=== PATIENT | male | born 1985 | race Caucasian/White ===

== ENCOUNTER 2025-09-22 10:12 | Emergency (ER) | payer BC, SELFPAY ==
[2025-09-22 10:31] VITALS: BP 137/74; PULSE 81; RESP 16; TEMP 37; O2SAT 99; BMI 29.7
--- OUTSIDE RECORDS SUMMARY | 2025-09-22 10:55 | XMS_ITS | Clinical Summary ---
Author Organization [facility] Address [address] [place] [address] Care Team Providers Care Pipeline Operator Name Role Phone Unavailable Primary Care Provider Unavailabl e Source Comments PLEASE NOTE, if this patient is a minor, it may be UNLAWFUL to discuss sensitive information that is contained in these records (such as FAMILY PLANNING, MENTAL HEALTH or SUBSTANCE ABUSE) with the minor patient's parent or other person without the patient's specific authorization.[facility] Immunizations Immunization Administration Dates Next Due Moderna COVID-19 Vaccine, re d cap blue label, 12+ Primary Series 04/09/2021,03/12/2021 Social History Tobacco Use Types Packs/Day Years Used Date Smoking Tobacco: Never Assessed Social Connections Answer Date Recorded Social Connections and Isolation 0 03/12/2021 Financial Resource Strain Answer Date R ecorded Financial Resource Strain 0 2020 Stress Answer Date Recorded Stress 0 03/12/2021 Physical Activity Answer Date Recorded Physical Activity 0 03/12/2021 Food Insecurity Answer Date Recorded Food 0 03/12/2021 Transportation Needs Answer Date Record ed Transportation 0 03/12/2021 Housing Stability Answer Date Recorded Housing 0 03/12/2021 Safety and Environment Answer Date [place] rded Safety 0 03/12/2021 Utilities Answer Date Recorded Utilities 0 03/12/2021 Employment Answer Date Recorded Employment 0 03/12/2021 Sex and Gender Information Value Date Recorded Sex Assigned at Not on file Legal Sex Male 6:42 AM PDT Gender Identity Not on file Sexual Orientation Not on file Plan of Treatment Health Maintenance Due Date Last Done Comments Anxiety Screening 1984 Diabetes Screening 1984 Hepatitis C Screening 1984 Lipid Screening 1984 Tobacco Screening 1984 HIV Screening 1999 Hypertension Screening (#1) 2002 Imm-DTaP/Tdap/Td (1 - Tdap) 2003 Imm-Hepatitis B (1 of 3 - 19 + 3-dose series) 2003 Imm-HPV (1 - 3-dose SCDM series) 2011 Alcohol and Drug Screen 11/15/2024 Depression Annual Screen 11/15/2024 [id number] ( season) 2025 021, 03/12/2021 Imm-Influenza (#1) 2025 Insurance [employer]/[facility]
--- OUTSIDE RECORDS SUMMARY | 2025-09-22 10:55 | XMS_ITS | Clinical Summary ---
Author Organization [facility] Address [address] [place] [address] Care Team Providers Care Sling Operator Name Role Phone Unavailable Primary Care Provider Unavailabl e Social History Tobacco Use Types Packs/Day Years Used Date Smoking Tobacco: Never Assessed Sex and Gender Information Value Date Recorded Sex Assigned at Not on file Legal Sex Male 9:50 AM EDT Gender Identity Not on file Sexual Orientation Not on file Plan of Treatment Health Maintenance Due Date Last Done Comments Hepatitis C Screening 1984 DTaP/Tdap/Td (1 - Tdap) 2002 Hep B (1 of 3 - 19+ 3-dose series) 2003 COVID-19 Vaccine ( - 2024-2 6 season) 2025 Influenza (#1) 2025 Zoster (Shingrix) (1 of 2) 2034 HPV Vaccine (No Doses Required) Completed Hep A Aged Out No longer eligi ble based on patient's age to complete this topic Hib Aged Out No longer eligi ble based on patient's age to complete this topic Meningococcal ACWY Aged Out No longer eligible based on patient's age to complete this topic Pneumococcal Aged Out No longer eligi ble based on patient's age to complete this topic
--- OUTSIDE RECORDS SUMMARY | 2025-09-22 10:55 | XMS_ITS | Data Portability ---
Author Organization [place] - [facility], Allergy Address [address] [place] [id number] Care Team Providers Care Field Worker Name Role Phone KIT PEREZ Primary Care Provider [phone] Assessment No assessment recorded. Plan of Treatment Reminders Order Date Submit Date Provider Last Modified By Organization Details Last Modified Time Details Appointments Establish ed 30 2024 09:00A M COLLIN Delaney MD Not available Not available Not available Lab None recorded. Referral None recorded. Procedures None recorded. Surgeries None recorded. Imaging None recorded. Medication Orders None recorded. Patient TargetsNo targets recorded. Patient InstructionsNo instructions recorded. Reason for Referral None Reported. Results Created Date Observation Date Name Description Value Unit Range Abnormal Flag Note LastModifiedBy Organization Detail LastModifiedTime 04/19/20 25 audio gram No observ ation record ed. BARCODE Not Available 2024 09:21:17 Result Notes None recorded. 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 Procedures Surgical History Date Name Laterality Status Provider Name and Address Organization Details Recorded Time 04/18/2025 Air & Speech Audio with Tymps - 07668, 00196 & 13783 completed MASSIEL ELLIOTT MA, [facility] [address] [place] [address], [phone], [facility] - [facility] 04/18/2025 16:49:01 Imaging Results None recorded. Procedure Notes None recorded. Medical Equipment None Reported. Allergies Allergen ID Allergen Name Allergen Category Reaction Reaction Severity Criticality Documentation Date Start Date Code Code System Note Provider Name and Address Organization Details Recorded Time 207404 Wellbutri n medicatio n Not available Not available Not available 04/18/2025 77993 RxNorm Makenna sales [place] - [facility] 16:20:54 Medications Name Sig Start Date Stop Date Status Note LastModified by Organization Details LastModified Time ibuprofen 800 mg tablet TAKE 1 TABLET BY MOUTH EVERY 8 HOURS NEEDED FOR PAIN 04/18 completed Not Available Not Available Not Available clindamycin HCl 150 mg capsule TAKE 1 CAPSULE BY MOUTH 4 TIMES A DAY FOR 7 DAYS 04/18 completed Not Available Not Available Not Available penicillin V potassium 500 mg tablet TAKE 1 TABLET BY MOUTH THREE TIMES DAILY FOR SEVEN DAYS 04/18 completed Not Available Not Available Not Available amoxicillin 500 mg tablet TAKE 1 TABLET BY MOUTH EVERY 8 HOURS 04/18 completed Not Available Not Available Not Available dextroamphe tamine-amph etamine 20 mg tablet TAKE 2 TABLETS EVERY DAY BY ORAL ROUTE DIRECTED FOR 28 DAYS. 04/18 completed Not Available Not Available Not Available oxycodone-a cetaminophe n 7.5 mg-325 mg tablet TAKE 1 TABLET BY MOUTH 4 TIMES A DAY NEEDED FOR PAIN 04/18 completed Not Available Not Available Not Available methylpredn isolone 4 mg tablets in a dose pack TAKE 6 TABLETS ON DAY 1 DIRECTED ON PACKAGE AND DECREASE BY 1 TAB EACH DAY FOR A TOTAL OF 6 DAYS 04/18 completed Not Available Not Available Not Available escitalopra m 10 mg tablet TAKE 1 TABLET BY MOUTH EVERY DAY 04/18 completed Not Available Not Available Not Available escitalopra m 20 mg tablet TAKE 1 TABLET BY MOUTH EVERY DAY 04/18 completed Not Available Not Available Not Available chlorhexidi ne gluconate 0.12 % mouthwash RINSE 15 ML TWICE A DAY, THEN EXPECTORA TE 04/18 completed Not Available Not Available Not Available Adderall active Not Available Not Avai lable Not Available Lexapro active Not Available Not Avail able Not Available Vitals Date Recorded Body height Body mass index (BMI) Body weight Provider Name and Address Organization Details Last Updated DateTime 04/18/2025 187.96 cm 29.5 kg/m2 430033.25 g Makenna Betancur [place] - [facility] 04/18/2025 16:22:43 Social History None recorded. Functional Status None recorded. Mental Status None recorded. Family History Nothing Reported. Medical History Condition Response Cancer Y Past Encounters Encounter ID Performer Location Encounter Start Date Encounter Closed Date Diagnosis/Indication Diagnosis SNOMED-CT Code Diagnosis ICD10 Code Diagnosis IMO Codes Diagnosis Note [id number] COLLIN MOON MD [facility] [address] [phone] 04/18/2025 15:18:13 04/18/2025 17:08:55 Abnormal auditory perception 03616648 H93.293 [id number] Audiologic al evaluation results: Right ear: Normal hearing with excellent word recognitio n. Left ear: Normal hearing with excellent word recognitio n. 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 I discussed his nystagmus is central and unrelated. Hearing is normal. I recommend observatio n. We will obtain an MRI in 6 months (following an office visit to reassess). I asked him to call with any hearing change. I personally reviewed his MRI. History of meningioma 11 [id number] 86105 Z86.827 [id number] Health Concerns Section Related Observation LastModified by Organization Detai ls LastModified Time None Recorded Concern Status LastModified by Organization Details LastModified Time None Recorded Advance Directives Directive None Recorded Payers Insurance Date Sequence Insurance Name Policy Number Policy Garcia Covered Member ID Garcia Member ID Guarantor Name 04/18/2025 1 [employer] [facility] [id number] Vangie Duenas [id number] Jimenez Duenas 06/19/2025 1 [facility] [place] [id number] Vangie Duenas [id number] Jimenez Duenas Notes Date Note Type Note Provider Name and Address Organization Details Recorded Time 04/18/2025 text/html ROS as noted in the HPI He has a history of a meningioma s/p resection in 2004 via suboccipital craniotomy (right cerebellum). He has vertical nystagmus. Had an MRI brain with contrast 02/2025 at [facility] which showed an incidental 5mm vestibular schwannoma. 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 He presents for evaluation. No difficulty hearing. COLLIN MOON MD [address] [place] [address], [place], [phone], [facility] - [facility] 04/18/2025 17:10:08
[2025-09-22] MEDS: Lidocaine HCl 1 % MPF 5 ML VIAL 10 ML INFILTRATI (12:23)
--- NOTE | 2025-09-22 12:57 | ED.WOUNDLAC ---
HPI - Wound/Laceration General Chief Complaint: Wound/Laceration Stated Complaint: r mid and pinky finger laceration Time Seen by Provider: 09/22/25 12:01 Source: patient and family () Mode of arrival: ambulatory Limitations: no limitations History of Present Illness ED Provider: SONIA CARRENO PA-C HPI narrative: 39 year old male presents to the ED today for evaluation after sustaining lacerations to his right 5th, 4th and 3rd digits DOG HAIR CLIPPER in ED today. Patient states he was attempting to adjust his exhaust pipe when his hand slipped, causing a laceration to these digits along the edge of the pipe. Bleeding controlled on arrival to ED. He denies any difficulty moving his fingers. He is unsure of his last tetanus. Related Data Allergies Allergy/AdvReac Type Severity Reaction Status Date / Time bupropion (From Wellbutrin) Allergy Hives Verified 09/22/25 10:35 Review of Systems Review of Systems: Yes all other systems are reviewed and are negative PMFSH Past Medical History Attestation statement: The following information was validated with the patient. Source: old records reviewed and nursing notes reviewed Social History Social History Advance Directives: No Advance Directives Information Provided: No Physical Exam Vital Signs: Vital Signs: Last Vital Signs Temp 98.6 F 09/22/25 13:48 Pulse 81 09/22/25 13:48 Resp 16 09/22/25 13:48 BP 137/74 09/22/25 13:48 Pulse Ox 99 09/22/25 13:48 O2 Del Method Room Air 09/22/25 13:48 BMI result Body Mass Index 29.7 vitals stable General: Well appearing, in no acute distress. Skin: Warm, dry, intact. No rashes or lesions. Head: Normocephalic, atraumatic. EENT: Hearing is intact b/l. Conjunctiva clear. PERRLA. EOM intact. Moist mucous membranes.? Cardiac: Chest wall symmetric. RRR Lungs: Normal respiratory effort without accessory muscle use. CTA bilaterally Ext: +see photos of right hand below. finger strength intact. finger to thumb opposition intact. FROM intact to all digits. no involvement of deeper structures. Neuro: AOx3. Normal speech. Ambulating with steady gait. Course Course Course Narrative: Lacerations thoroughly cleansed with saline and iodine. Obtained verbal consent for laceration repair/ nerve block. Digital block x2 performed - R 4th/5th digits. 4th digit repaired w/ 3 4-0 sutures. 5th digit laceration repaired w/ 7 4-0 sutures. Refer to procedure notes. patient tolerated well. tdap updated. Patient has remained stable throughout ED visit today. Discussed worrisome signs and symptoms and when to return to the ED. All questions answered at this time. Patient is agreeable with disposition and stable for discharge. Medications Administered Discontinued Medications Generic Name Dose Route Start Last Admin Trade Name Freq PRN Reason Stop Dose Admin Diphtheria/Tetanus/Acell Pertussis 0.5 ml 09/22/25 13:33 09/22/25 13:37 Diphth,Pertus(Acell),Tet Adult 0.5 Ml Syringe IM 09/22/25 13:34 0.5 ml .ONCE ONE Administration Ibuprofen 800 mg 09/22/25 12:01 09/22/25 12:07 Ibuprofen 800 Mg Tablet PO 09/22/25 12:02 800 mg ONCE ONE Administration Ibuprofen 600 mg 09/22/25 13:10 09/22/25 13:34 Ibuprofen 600 Mg Tablet PO 09/22/25 13:11 Not Given ONCE ONE Lidocaine HCl 10 ml 09/22/25 12:07 09/22/25 12:23 Lidocaine Hcl 1 % Mpf 5 Ml Vial INFILTRATI 09/22/25 12:08 10 ml ONCE ONE Administration Medical Decision Making Medical Decision Making [facility] Narrative: 39 year old male presents to the ED today for evaluation after sustaining lacerations to his right 5th, 4th and 3rd digits DOG HAIR CLIPPER in ED today. his vitals are stable. he is well appearing, in NAD. refer to exam portion for findings. Differential diagnosis includes lacerations, abrasion. Unlikely tendon/ligament injury, retained FB, fracture. Plan for lac repair, tdap update, disposition. Differential Diagnosis Differential Diagnoses: The differential diagnosis associated with the presentation includes as above. Admission/Observation not indicated Independent Historian Clinical information obtained from an independent historian. History obtained from or confirmed by: Spouse Prescription Management I considered prescription management with: Pain Medication Social Determinants Patient?s care significantly limited by Social Determinants of Health including: Other Social Determinant of Health Procedures Laceration Laceration 1: Site: hand (finger) Side (If applicable): left (4th digit) Size (cm): 1 Description: linear Depth: simple, single layer Local Anesthetic: lidocaine 1% Amount of anesthesia used (mL): 5 Pre-repair: wound explored, irrigated extensively and deep structures intact Skin layer closed with: nylon Size (cm): 4-0 Number of sutures: 3 Technique: simple, interrupted Laceration 2: Site: hand Side (If applicable): left (5th digit) Size (cm): 3 Description: irregular Depth: simple, single layer Local Anesthetic: lidocaine 1% Amount of anesthesia used (mL): 5 Pre-repair: wound explored, irrigated extensively and deep structures intact Skin layer closed with: nylon Size (cm): 4-0 Number of sutures: 7 Technique: simple, interrupted Nerve Block Nerve Block 1: Time out performed: Yes Local Anesthetic: lidocaine 1% Amount of anesthesia used (mL): 5 Side: left Nerve Blocks: digital (4th) Procedure Successful: Yes Patient Tolerated Procedure: well Complications: none Nerve Block 2: Time out performed: Yes Local Anesthetic: lidocaine 1% Amount of anesthesia used (mL): 5 Side: left Nerve Blocks: digital (5th) Procedure Successful: Yes Patient Tolerated Procedure: well Complications: none Critical Care Time Critical Care Time Critical Care Time: No Discharge Plan Discharge Clinical Impression: Laceration of multiple sites of right hand and fingers Patient Disposition: Home, Self-Care Instructions: Laceration (ED) Additional Instructions: You have been evaluated in the Emergency Department today for a laceration to your right pinky and ring fingers. He has lacerations were repaired with a total of 10 sutures. Your tetanus vaccination was also updated and will be valid for 5-10 years. Please keep the area surrounding the laceration clean and dry. Do not get the area wet for 24 hours. After 24 hours, you may clean the area with a non-scented soap and pat to dry. Please keep the area out of the sunlight for the next 6 months to help prevent scarring.? If you develop redness or swelling at the site of your laceration or note any discharge/ fluid coming from the laceration, please come back to the ER for a wound check. I recommend you take 600mg ibuprofen every 6 hours or tylenol 650mg every 6 hours as needed for pain. If needed, you can alternate these medications so that you take one medication every 3 hours. For example, at noon take ibuprofen, then at 3pm take tylenol, then at 6pm take ibuprofen. Please follow up with your primary care physician in 7-10 days for suture removal. You may also return to the ER or another urgent care facility for this service. Return to the Emergency Department if you experience discharge from your laceration, redness around your laceration, warmth around your laceration, fever, vomiting, numbness, tingling, or any other concerning symptoms. In the case of an emergency call 911. Referrals: Bri Felix PA [Primary Care Provider, Family Practice] Stand Alone Forms: Work/School Release Interventions: ED Discharge Assessment Last Done: 09/22/25 13:48 Discharge Date/Time: 09/22/25 13:48 Print Language: Armenian
[2025-09-22] MEDS: Diphth,Pertus(ACell),Tet Adult 0.5 ML SYRINGE IM (13:37)
[2025-09-22 13:48] VITALS: BP 137/74; PULSE 81; RESP 16; TEMP 37; O2SAT 99
== END 2025-09-22 13:48 | disposition home or self-care (01) ==
PROVIDERS: Emergency Provider Emergency Medicine Emergency Medical Services; PCP Physician Assistant
DX: S61.215A Laceration without foreign body of left ring finger without damage to nail, initial encounter (principal); S61.217A Laceration without foreign body of left little finger without damage to nail, initial encounter; Z23 Encounter for immunization; W26.8XXA Contact with other sharp object(s), not elsewhere classified, initial encounter; Y93.89 Activity, other specified; Y92.9 Unspecified place or not applicable; Y99.9 Unspecified external cause status; Z88.8 Allergy status to other drugs, medicaments and biological substances
CPT/HCPCS: 12002; 90471; 90715; 99283; 99284; J2003